=== PATIENT | female | born 1980 | race Caucasian/White ===

== ENCOUNTER → 2018-08-07 | Day surgery (SDC) | payer BC ==
[~2018-08-07] MED LIST: CARAFATE1 GM/10 ML PO; FENTANYL CITRATE/PF 100MCG/2 ML INJ ONE; LISINOPRIL-HCT1 EAC1; MIDAZOLAM HCL 2 MG/2 ML VIAL ONE; PANTOPRAZOLE 40 MG 10ML VIAL ONE; PANTOPRAZOLE SO40 MG PO; PROPOFOL IV EMULSION 10 MG/ML 50 ML VIAL ONE; TYLENOL
[2018-08-07 11:15] VITALS: BP 115/67
--- NOTE | 2018-08-07 11:58 | Operative Report ---
DATE OF PROCEDURE: August 07, 2018 REFERRING PHYSICIAN: Dr. Paramjit Matias. PROCEDURE PERFORMED: Esophagogastroduodenoscopy with biopsies and a colonoscopy with biopsies and a polypectomy. INDICATIONS FOR ESOPHAGOGASTRODUODENOSCOPY: Acid reflux. INDICATIONS FOR COLONOSCOPY: Chronic diarrhea. MEDICATION: Patient was done under MAC. Please see anesthesiologist's note. PROCEDURE: With the patient in left lateral decubitus position, flexible fiberoptic Olympus gastroscope was inserted into the esophagus under direct visualization without any difficulty. Some concentric rings and longitudinal furrows were noted compatible with possible eosinophilic esophagitis and biopsies were obtained. There was some patchy erythema noted in distal esophagus. The scope was then advanced with ease into the stomach. Mucosa overlying the antrum and the body revealed some patchy intense erythema and low-grade to moderate edema and biopsies were obtained and sent to stain for H. pylori. There was some extrinsic compression noted against the posterior gastric wall of the body of the stomach. The overlying mucosa appeared to be normal. The pylorus was then intubated with ease and the scope was advanced all the way to the 2nd portion of the duodenum. Biopsies were obtained from the proximal, 2nd portion and the duodenal bulb to rule out sprue. There were several minute nodules noted in the duodenal bulb and biopsies were obtained. The scope was then withdrawn back into the stomach and retroflexed and mucosa overlying the fundus and the cardia appeared to be within normal limits. The scope was then straightened out. It was subsequently withdrawn. Patient tolerated the procedure well. IMPRESSIONS 1. Rule out eosinophilic esophagitis. 2. Gastritis biopsied. Biopsies sent to stain for Helicobacter pylori. 3. Extrinsic compression, minute posterior wall, gastric body. 4. Duodenal bulb, nodules, minute. Biopsies obtained. 5. Rule out sprue. PLAN: Follow up histology. Increase Protonix to 40 mg 1 p.o. a.c. b.i.d. Patient will need a CT scan of the abdomen. Patient was then turned around and after adequate lubrication of the anal canal, a flexible fiberoptic Olympus colonoscope was inserted into the rectum with ease and advanced all the way to the cecum. Mucosa overlying the cecum appeared to be within normal limits. The ileocecal valve was intubated and the scope was advanced into the terminal ileum. Biopsies were obtained. The scope was then withdrawn back into the stomach was then withdrawn slowly. Mucosa overlying the ascending and transverse appeared to be within normal limits. Mucosa overlying the distal descending, sigmoid and rectum revealed patchy mild inflammatory changes and random biopsies were obtained. There was an approximately 4-mm polyp noted in the rectum. That was snared. The scope was then retroflexed into the distal rectum and small internal hemorrhoids were noted, none of which was actively bleeding. The scope was then straightened out. It was subsequently withdrawn. Patient tolerated the procedure well. IMPRESSIONS 1. Mild patchy left-sided colitis. 2. Rectal polyps, snared. 3. Internal hemorrhoids, none actively bleeding. PLANS: Follow up histology. Follow up stool studies. Initiate Bentyl 20 mg 1 p.o. t.i.d., Colestid 1 g p.o. daily. Patient might benefit from a followup colonoscopy in 5 years. Job#: [id number] TA cc:PARAMJIT MATIAS MD,
[2018-08-07 14:30] LABS: WBC,FECAL (FECAL LACTOFERRIN) POSITIVE (NEGATIVE)
[2018-08-07 14:34] LABS: C DIFFICILE TOXIN A&B AMP PROB NEGATIVE (NEGATIVE)
== END | disposition home or self-care (01) ==
LOC: ENDO 10:35
PROVIDERS: ATTEND Internal Medicine Gastroenterology
DX: K51.50 Left sided colitis without complications (principal); K62.1 Rectal polyp; K29.70 Gastritis, unspecified, without bleeding; K29.80 Duodenitis without bleeding; K20.9 Esophagitis, unspecified; K21.9 Gastro-esophageal reflux disease without esophagitis; K31.89 Other diseases of stomach and duodenum; I10 Essential (primary) hypertension; F41.9 Anxiety disorder, unspecified; Z01.810 Encounter for preprocedural cardiovascular examination; Z68.41 Body mass index [BMI] 40.0-44.9, adult
CPT/HCPCS: 43239; 45380; 45385; 81025; 83630; 83993; 87045; 87177; 87328; 87493; 93005; J2250; 45378